=== PATIENT | female | born 1965 | race Two or more races ===

== ENCOUNTER 2023-04-29 08:50 | Day surgery (SDC) | payer OTHER ==
[~2023-04-29 08:50] MED LIST: COZAAR50 MG PO; SYNTHROID50 MCG PO
[2023-04-29] MEDS ORDERED: CEFOXITIN SODIUM 2,000 MG VIAL IV ONE ×2 (13:07→15:15)
[2023-04-29] MEDS ORDERED: POVIDONE-IODINE 118 ML BOTT TOP ONE ×2 (14:55→15:15)
[2023-04-29] MEDS ORDERED: KETOROLAC TROMETHAMINE 30 MG VIAL IV ONE (15:45)
[2023-04-29] MEDS ORDERED: KETOROLAC TROMETHAMINE 30 MG VIAL ONE (19:42)
[2023-04-29] MEDS ORDERED: ONDANSETRON HCL 2 MG/ML VIAL ONE (21:56)
== END 2023-04-29 21:45 | disposition home or self-care (01) ==
LOC: CIR.AMB 08:50
PROVIDERS: ATTEND Obstetrics & Gynecology Gynecologic Oncology
DX: N87.0 Mild cervical dysplasia (principal); N72 Inflammatory disease of cervix uteri; I10 Essential (primary) hypertension; E03.9 Hypothyroidism, unspecified